=== PATIENT | male | born 1960 | race Caucasian/White ===

== ENCOUNTER → 2017-04-10 | Outpatient (CLI) | payer OTHER | LOC: ULTRA 12:02 | DX: N50.89 Other specified disorders of the male genital organs (principal) ==

== ENCOUNTER → 2017-05-08 | Outpatient (CLI) | payer OTHER ==
[~2017-05-08] VITALS: Ht 180.3 cm; Wt 91.4 kg
[~2017-05-08] MED LIST: ASPIRIN81 M2 PO; CELEXA20 MG PO; CYMBALTA30 MG PO; GLUCOPHAGE XR500 MG PO; IBUPROFEN 200200 M1 PO; TRESIBA FL100 UNIT/1 INJECTION; VIAGRA25 MG PO; ZOCOR20 MG PO
--- NOTE | ~2017-05-08 | HPC ---
[facility] [address] [place] [address] PAIN MANAGEMENT CONSULTATION Name: DARRION FLORES KAREN Room #: REG ROXANNELa Xiong#: [id number] Admission: 05/08/17 Attend Phys: Nir Alejandro DO Discharge: Date of : 58 Report #: [id number] THIS REPORT FOR: //name// CC: Trev Alejandro DATE OF SERVICE: 05/08/2017 The patient is a very pleasant 56-year-old gentleman seen in consultation at the request of Dr. Lares for assistance with management of right testicular pain. The patient notes he has had right testicular pain for greater than 30 years. Ultimately, progressed to have epididymectomy 05/2016 with transient improvement. Developed subsequent hydrocele and has had it aspirated twice with some efficacy. He has used anti-inflammatory medications with really nominal efficacy. Ice had helped somewhat in the past. Notes pain is aching, chronic, sharp with episodic ice pick, lancinating pain. Describes constant, steady, throbbing, sharp, stabbing pain, rates it anywhere from 6-9 on VAS. Cannot think of anything particularly that seems to make it better or worse. REVIEW OF SYSTEMS: Complete review of systems attached to chart and gone over with the patient. He is . Does not smoke, drink alcohol to excess. History of diabetes, currently treated with metformin, NovoLog and Tresiba. Recent hemoglobin A1c is 7.0. Has been on simvastatin due to risk factors including [id number] diabetes and father had coronary artery disease. Does have some erectile dysfunction, uses Viagra occasionally. He has been on citalopram for about 8 years for some low lying anxiety and depression. PAST SURGICAL HISTORY: Includes meniscus repair in 1976. Epididymectomy on 05/22/2016. Vasectomy in 1991 and aspiration of hydrocele was October and December. The patient works as a healthcare administrative manager. He continues to work despite pain. Pain impact score averages about 35/70. PHYSICAL EXAMINATION: VITAL SIGNS: Reveals a 5 feet 11 inches, 200 pound gentleman, BMI is 28.1 kilograms per meter squared. Blood pressure 131/89, pulse 67, respirations 16. NEUROLOGIC: Cranial nerves 2-12 are grossly intact. HEENT: Pupils equal, reactive to light and accommodation. Extraocular muscles are intact. [facility] [address] [place] [address] PAIN MANAGEMENT CONSULTATION Name: DARRION FLORES KAREN Room #: REG FLIP Xiong#: [id number] Admission: 05/08/17 Attend Phys: Nir Alejandro DO Discharge: Date of : 58 Report #: [id number] NECK: Thyroid is unremarkable. Cervical range of motion is full. Upper extremity strength is preserved. HEART: Regular rhythmical without murmur. LUNGS: Clear to auscultation. MUSCULOSKELETAL: Gait is tandem NOTE: ABDOMEN: Unremarkable. No suprapubic tenderness noted. GENITOURINARY: Right testicle is a little bit larger. I can palpate hydrocele on this side. Left testicle is unremarkable. Negative hernia exam. No tenderness noted over the anterior superior iliac spine, there is no groin adenopathy appreciable. ASSESSMENT: Right testicular pain, neuropathic pain component in a gentleman with comorbidity of diabetes. RECOMMENDATIONS: Discussed with the patient today about therapeutic option. First, we talked about rotating from a strict serotonin reuptake inhibitor to a combination SSRI and norepinephrine reuptake inhibitor to help with chronic pain concerns. We will rotate from 20 mg of Celexa to 30 mg of Cymbalta today. I gave the patient samples to start Lyrica 50 mg at bedtime. We will follow up in about 3-4 weeks to evaluate efficacy of these interventions. We may increase the Cymbalta to 60 mg if he he sees some efficacy. If not, we will consider moving forward with ilioinguinal genitofemoral nerve block on the right side. Thank you for allowing me to participate in the patient's care. I will keep you abreast of his progress. <ELECTRONICALLY SIGNED> By: Nir Alejandro DO 05/14/17 0847 1257 12 Nir Alejandro DO /nt
[2017-05-08 10:43] VITALS: BP 131/89
== END | disposition home or self-care (01) ==
LOC: PAIN 08:55
DX: N50.811 Right testicular pain (principal); E11.9 Type 2 diabetes mellitus without complications; F32.89 Other specified depressive episodes; Z98.890 Other specified postprocedural states; Z87.891 Personal history of nicotine dependence; Z79.82 Long term (current) use of aspirin; Z79.4 Long term (current) use of insulin; Z79.899 Other long term (current) drug therapy

== ENCOUNTER → 2017-06-05 | Outpatient (CLI) | payer OTHER ==
[~2017-06-05] VITALS: Ht 182.9 cm; Wt 92.2 kg
[~2017-06-05] MED LIST changes: +CYMBALTA60 MG PO; +LYRICA150 MG PO
--- NOTE | ~2017-06-05 | HPC ---
[facility] [address] [address] PAIN MANAGEMENT CONSULTATION Name: DARRION FLORES KAREN Room #: REG ROXANNELa Xiong#: [id number] Admission: 06/05/17 Attend Phys: Nir Alejandro DO Discharge: Date of : 58 Report #: [id number] THIS REPORT FOR: //name// CC: Preston Alejandro HISTORY OF PRESENT ILLNESS: The patient is a very pleasant 56-year-old gentleman seen in consultation on 05/08/2017, diagnosed with symptomatic right testicular pain, neuropathic pain requiring complex medication management. At that visit, we elected to start the patient on Lyrica low dose 50 mg, samples were given. We suggested rotation from Celexa 20 mg to Cymbalta 30 mg. We also briefly discussed ilioinguinal and genitofemoral nerve block. He returns to pain clinic today, he noted good relief initially with medications but gradually that recurred. He notes he has had that chronic right testicular pain for greater than 30 years. He states that the medications worked well for about 3 weeks, but it started to lose efficacy. Rates the pain 4 on a VAS, notes it is worse at the end of the day. PHYSICAL EXAMINATION: Shows 56-year-old gentleman, BMI is 27.6 kilograms per meter squared. Blood pressure is modestly elevated 152/90, pulse 82, respirations 16. Gait is tandem. Genital exam was referred. ASSESSMENT: 1. Right testicular pain. 2. Neuropathic pain requiring complex medication management. RECOMMENDATIONS: I had a long discussion with the patient today about therapeutic option, given the fact that he had good relief from low dose Cymbalta and Lyrica, we would like to simply push those doses up a little bit, I have taken the liberty of writing for prescription for Cymbalta 60 mg, samples of Lyrica 75 mg were given. We will slowly increase this dose from 50 mg at night to 75 at night for 7 night, 75 plus 50 (125 mg) at night for 7 nights. He has samples for all of this. I did generate a prescription for 150 mg of Lyrica to take at bedtime subsequent to the 1 week of 125 mg total dose. I will see him back in 4 weeks. If pain is becoming problematic, we will consider the ilioinguinal/genitofemoral nerve blocks at that time. If, however, he is doing reasonably well, I did write in both prescriptions (Cymbalta 60 mg and Lyrica 150 mg) for 30 tablets with 5 refills. We will see him simply on an as needed basis. <ELECTRONICALLY SIGNED> By: Nir Alejandro DO 06/08/17 1014 1532 1216 Nir Alejandro DO /nt
[2017-06-05 08:23] VITALS: BP 152/90
== END | disposition home or self-care (01) ==
LOC: PAIN 07:03
DX: G62.9 Polyneuropathy, unspecified (principal); Z79.899 Other long term (current) drug therapy

== ENCOUNTER → 2017-10-29 | Outpatient (CLI) | payer OTHER ==
[~2017-10-29] VITALS: Ht 182.9 cm; Wt 95.4 kg
[~2017-10-29] MED LIST changes: +LYRICA 75 MG CA75 MG PO; +NOVOLOG100 UNIT/1 SUBQ; +TRESIBA FL100 UNIT/1 SUBQ; +TRILEPTAL150 MG PO; +TRILEPTAL300 MG PO; +[UNRECOGNIZED DRUG - CODE] IM
--- NOTE | ~2017-10-29 | HPC ---
[facility] [address] [place] [address] PAIN MANAGEMENT CONSULTATION Name: SANDRADARRIONGERRY JONES Room #: REG FLIP Flores.#: [id number] Admission: 10/29/17 Attend Phys: Nir Alejandro DO Discharge: Date of : 58 Report #: [id number] THIS REPORT FOR: //name// CC: Preston Alejandro The patient is a 57-year-old gentleman, prior seen in the pain clinic 07/09/2017, diagnosed with symptomatic right testicular pain, neuropathic pain component, requiring complex medication management. The patient trialed Lyrica, titrated up to 150 mg at bedtime and Cymbalta, which caused erectile dysfunction, rotated back to Celexa. He returns to pain clinic today noting pain continues to be problematic, rates a 7 on VAS. PHYSICAL EXAMINATION: Shows a 57-year-old gentleman, BMI is 28.5 kg/m2. Vital signs are stable as noted on the EMR. He has not fallen in the last 6 weeks. Subjective pain score is 43/70, low risk for opiate diversion. He is using Lyrica 150 mg at bedtime with some efficacy. Notes pain continues to be problematic, it has been there for 30 years, feels that he is getting a little bit of swelling in the right testicle. Suggest he follow up with his urologist, he has had a cystocele drained twice, usually with improvement of pain for about 3-4 months. Otherwise, the neuropathic pain continues to be problematic, states the fairly small area perhaps half inch in diameter on the right testicle, but it does interfere with function. Physical exam as noted above. ASSESSMENT: Neuropathic pain requiring complex medication management, right testicular pain. RECOMMENDATION: We have elected to trial adding a sodium channel membrane stabilizing agent, while continuing the Lyrica. If there is some good synergy, we will continue that medication. If he does get excellent relief, we may consider weaning the Lyrica and see if the sodium channel membrane stabilizing agent alone affords good relief. I have taken liberty of writing for Trileptal 150 mg starting one at bedtime, titrating to target dose of 1 in the morning and 2 at night, follow up in 30 days to reevaluate. Discharged in good and stable condition after approximately 20-minute visit spent counseling the patient. I talked about moving forward with a ganglion impar block to help with ongoing neuropathic pain and what appears to be an ill-defined sympathetically mediated pain pattern. If this does not afford good relief, we also talked at length today about consideration for a spinal cord stimulator. I talked about [address] [address] PAIN MANAGEMENT CONSULTATION Name: DARRION FLORES Room #: REG FLIP Xiong#: [id number] Admission: 10/29/17 Attend Phys: Nir Alejandro DO Discharge: Date of : 58 Report #: [id number] mechanisms of action, risks and benefits. The patient was given a [employer] spinal cord stimulator disk. He was seen for approximately 30 minutes in total, greater than 50% of time was spent counseling the patient, discussing therapeutic options, risks and benefits. Seen from 9:53 to 10:20. <ELECTRONICALLY SIGNED> By: Nir Alejandro DO 11/02/17 0747 1239 1858 Nir Alejandro DO /nt
[2017-10-29 09:41] VITALS: BP 114/87
== END ==
LOC: PAIN 07:03
DX: N50.811 Right testicular pain (principal); M79.2 Neuralgia and neuritis, unspecified; Z79.899 Other long term (current) drug therapy

== ENCOUNTER → 2017-11-26 | Outpatient (CLI) | payer OTHER ==
[~2017-11-26] VITALS: Ht 182.9 cm; Wt 94.7 kg
[~2017-11-26] MED LIST changes: -NOVOLOG100 UNIT/1 SUBQ; -TRILEPTAL300 MG PO; -[UNRECOGNIZED DRUG - CODE] IM
--- NOTE | ~2017-11-26 | HPC ---
[facility] [address] [place] [place] [address] PAIN MANAGEMENT CONSULTATION Name: DARRION FLORES Room #: REG FLIP Xiong#: [id number] Admission: 11/26/17 Attend Phys: Nir Alejandro DO Discharge: Date of : 58 Report #: [id number] THIS REPORT FOR: //name// CC: Zak Alejandro DATE OF SERVICE: 11/26/2017 The patient is a 57-year-old gentleman being treated for chronic right testicular pain, neuropathic component, requiring complex medication management. Last seen in pain clinic 10/29/2017. Continued on Lyrica 150 mg in the morning and 75 at night, Cymbalta have been trialed but caused erectile dysfunction, is back on Celexa. I started Trileptal at last visit 150 mg, titrated up to 1 in the morning, 2 at night. We discussed proceeding with a ganglion impar block or spinal cord stimulator if that failed. The patient returns to pain clinic today noting that symptoms of pain in the right testicle and groin seem to be improved. Reviewed history, the patient's symptoms started 30 years ago. He has had vasectomy in 1991, starting his symptoms. He had an epydyectomy in 05/27/2016 and developed a hydrocele, has had this drained twice. He actually has a third hydrocele drainage scheduled next week. Initially it was drained 12 months ago, second draining was 6 months ago. He usually has improved subjective pain following this. Today, he notes his pain is generally well controlled, 2-3 on the VAS. PHYSICAL EXAMINATION: Otherwise shows a pleasant 57-year-old gentleman, BMI is 28.3 kilograms per meter squared, blood pressure 124/78, pulse 70, respirations 16. Alert and oriented to person, place and time, judged to be a reasonable historian, has not fallen in the last 3 months. Medication list was reconciled. Functional assessment tool score is 43/70. Low opiate risk using the opiate risk assessment tool. He rises from chair easily. Gait is tandem. Alert and oriented to person, place and time, judged to be a reasonable historian. Genital examination was deferred. ASSESSMENT: Neuropathic pain, right testicular chronic pain syndrome requiring complex medication management. RECOMMENDATIONS: We will continue Trileptal 150 mg 1 in the morning, 2 at night. We did review his lab studies from Dr. Bennett's office, a CBC obtained 11/05/2017 shows all normal values. No marrow suppression noted with the Trileptal. We will continue Lyrica, currently takes 150 mg in the morning and [address] [address] PAIN MANAGEMENT CONSULTATION Name: DARRION FLORES Room #: REG [facility] Tyrese#: [id number] Admission: 11/26/17 Attend Phys: Nir Alejandro DO Discharge: Date of : 58 Report #: [id number] 75 at night. I suggested we change his medication to 75 mg Lyrica 2 in the morning, 1 at night, with the ability to drop down to 1 tablet b.i.d. after the hydrocelectomy if this improves general pain. As pain starts to recur he can go back to 150 in the morning and 75 at night of the Lyrica tablets. ASSESSMENT: Symptomatic neuropathic pain, right testicular pain requiring complex medication management, stable on baseline medication. RECOMMENDATION: Changes as noted above. I will be happy to see the patient as needed for renewal of Lyrica and Trileptal. However, his primary practice physician can certainly write for these if so desired. We will be happy to see the patient back if anything changes and we require further interventional therapy, i.e., a ganglion impar block, consideration for spinal cord stimulator implant and/or further medication adjustments. <ELECTRONICALLY SIGNED> By: Nir Alejandro DO 11/30/17 0714 1225 1241 Nir Alejandro DO /nt
[2017-11-26 10:00] VITALS: BP 124/78
== END ==
LOC: PAIN 06:58
DX: N50.811 Right testicular pain (principal); G89.29 Other chronic pain; M79.2 Neuralgia and neuritis, unspecified; Z79.899 Other long term (current) drug therapy

== ENCOUNTER → 2018-06-25 | Outpatient (CLI) | payer OTHER ==
[~2018-06-25] VITALS: Ht 182.9 cm; Wt 89.4 kg
[~2018-06-25] MED LIST changes: +NOVOLOG100 UNIT/1 SUBQ; +TRILEPTAL300 MG PO; +[UNRECOGNIZED DRUG - CODE] IM
[2018-06-25 12:58] VITALS: BP 135/80
== END ==
LOC: PAIN 06:51
DX: N50.811 Right testicular pain (principal); Z72.89 Other problems related to lifestyle; Z86.59 Personal history of other mental and behavioral disorders; Z79.899 Other long term (current) drug therapy

== ENCOUNTER → 2018-10-13 | Outpatient (CLI) | payer OTHER ==
[~2018-10-13] VITALS: Ht 182.9 cm; Wt 91.2 kg
[~2018-10-13] MED LIST changes: +VITAMIN D1000 UNI1 PO
[2018-10-13 08:27] VITALS: BP 125/78
--- NOTE | 2018-10-13 08:45 | NUR ---
Pain Clinic Assessment: 1. History of Osteoarthritis: Not Applicable History of Rheumatoid Arthritis: Not Applicable 2. Height: 6 ft. 0 in. 182.9 cm. Weight: 201.0 lb. oz. 91.173 kg. Patient's BMI: 27.3 3. Vital Signs: BP: 125/78 Pulse: 76 Resp: 16 Temp: 02 Sat: 97 ECG Mon: 4. Pain Intensity: 2 AVG 1 TODAY 5. Fall Risk: Dizziness: N Needs help standing or walking: N Fallen in the last 3 months: N Fall risk comments: 6. Patient on Blood Thinner: None 7. History of Hypertension: N 8. Opioid Therapy greater than 6 weeks: N Opiate Contract Signed: 9. Risk Assessment Tool Provided: LOW RISK 09/09 10. Functional Assessment Tool: 11. Recreational Drug Use: Never Drug Type: Tobacco Use: Never Smoker Tobacco Type: Amount or Packs/day: How Many Years: Alcohol Use: Yes Frequency: Quant:
--- NOTE | 2018-10-15 16:49 | HPC ---
[facility] [place] [place] [address] PAIN MANAGEMENT CONSULTATION Name: FLORESDARRIONGERRY JONES Room #: REG FLIP Xiong#: [id number] Admission: 10/13/18 Attend Phys: Samuel Plunkett MD Discharge: Date of : 58 Report #: [id number] THIS REPORT FOR: //name// CC: Samuel Bennett DATE OF SERVICE: 10/13/2018 Here for medications. Things are going relatively well. FOLLOWUP HISTORY: The patient is a 58-year-old gentleman who has been followed in the Pain Clinic. He has a history of right testicular pain, which has been problematic for greater than 30 years. Has a history of epididymectomy in 2005. Has had some improvement as a result of that. Continues to have development of hydrocele. These have been aspirated in the past, but continues to have recurrences. Continues to be treated with a complex medical regimen. He feels it has been pretty helpful. This helps with the neuropathy component. He finds Lyrica 150 mg in the morning and 75 at night beneficial. He has had some erectile dysfunction. Feels that the Celexa has helped with this juncture. He has had discussions in the past with the possibility of a ganglion impar block. Possibility of a spinal cord stimulator had been discussed between the patient and Dr. Nir Alejandro. Since he is having reasonable pain reduction with his current medication, we will continue on this course. He has returned today with a desire to renew his medications. He would like to have 3 months prescriptions. ALLERGIES: No known drug allergies. CURRENT MEDICATIONS: 1. Papaverine/phentolamine/alprostadil water intermuscular as directed. 2. Trileptal 300 mg at bedtime, 150 mg in a.m., insulin NovoLog sliding scale 6 units with meal, Lyrica 75 mg at bedtime, 150 mg 9 a.m., ibuprofen 200 mg q. 6 hours, insulin 20 mg at bedtime, aspirin 81 mg, metformin 500 mg b.i.d., Celexa 20 mg at bedtime, Zocor 20 mg. PAIN CLINIC ASSESSMENT/PQRS: 1. History of osteoarthritis. The patient is not being treated for osteoarthritis and has not been treated for rheumatoid arthritis. 2. Height 6.0 feet, weight 201 pounds, BMI is 27.3. 3. Vital signs: Blood pressure 125/78. Pulse 76, respiratory rate 16, room air saturation 97%. 4. Pain intensity 2 on average today as a 1. 5. Rib fall risk. The patient has not fallen in the last 3 months. 6. Blood thinner. The patient is not on a blood thinning medication. 7. Hypertension. The patient is not being treated for hypertension. 8. Opioids greater than 6 weeks. [facility] [address] [place] [address] PAIN MANAGEMENT CONSULTATION Name: DARRION FLORES KAREN Room #: REG CLLa Xiong#: [id number] Admission: 10/13/18 Attend Phys: Samuel Plunkett MD Discharge: Date of : 58 Report #: [id number] 9. Risk assessment tool, low for opioid use 09/09. 10. Functional assessment tool. 11. Recreational drug use: The patient denies. 12. Tobacco: The patient has never smoked. 13. Alcohol, occasional alcoholic use. PHYSICAL EXAMINATION: GENERAL: The patient is a well-developed, well-nourished white male. Appears his stated age. He is alert and oriented x 3. His affect is appropriate. Speech is fluent. HEENT: Normocephalic, atraumatic. Extraocular eye muscles intact. Sclerae nonicteric. Mucous membranes are moist. NECK: Without JVD or adenopathy. HEART: Regular rate. S1, S2. LUNGS: Clear to auscultation without rhonchi or rales. ABDOMEN: Nontender. Bowel sounds present. EXTREMITIES: Upper extremity muscle strength is judged to be 5/5 for the major muscle groups with normal bulk and symmetry without neurologic change. Lower extremity muscle strength is judged to be 5/5 for the major muscle groups in the lower extremity. The patient has some pain and discomfort in his right testicular area and has some improvement in his pain with his current medical regimen. RECOMMENDATIONS: We discussed treatment options with the patient. He feels his medications are working well. He would like a 90-day prescription of each. We will renew his medications in a script for Trileptal 150 mg 1 p.o. q.a.m., 2 at bedtime, Lyrica 75 mg 2 in the a.m., 2 at bedtime. The patient will call us if he has any concerns. We would like to thank you for letting us participate in his care. We hope he continues to improve. <ELECTRONICALLY SIGNED> By: Samuel Plunkett MD 10/15/18 1649 1730 0145 Samuel Plunkett MD /nt
== END ==
LOC: PAIN 07:02
DX: N43.3 Hydrocele, unspecified (principal); Z79.899 Other long term (current) drug therapy

== ENCOUNTER → 2019-01-12 | Outpatient (CLI) | payer OTHER ==
[~2019-01-12] VITALS: Ht 180.3 cm; Wt 93.0 kg
[~2019-01-12] MED LIST changes: +AMITRIPTYLINE H10 M3 PO
--- NOTE | ~2019-01-12 | HPC ---
[facility] [address] [address] PAIN MANAGEMENT CONSULTATION Name: DARRION FLORES KAREN Room #: REG [place].#: [id number] Admission: 01/12/19 ������������������ Attend Phys: Samuel Plunkett MD Discharge: ������������������ Date of : 58 Report #: [id number] THIS REPORT FOR: //name// CC: Samuel Bennett DATE OF SERVICE: 01/12/2019 PROCEDURE: Right testicular pain. HISTORY: The patient is a 58-year-old gentleman who has been followed in the Pain Clinic. He has a history of right testicular pain. This has been ongoing for a number of years. About 30 years ago this is when the pain began. He has a history of epididymectomy in 2016. Pain improved after that. He does still continue to have pain and discomfort in the affected area. He has been treated over the years with a complex medical regimen, which has been helpful. He has found that his pain medications are now not as effective. Possibility of the spinal cord stimulator had been discussed with him in the past. At this juncture, he would like to have medications altered to increase his level of comfort. ALLERGIES: No known drug allergies. CURRENT MEDICATIONS: Papaverine/phentolamine/alprostadil water intramuscular as directed. Trileptal 300 mg at bedtime, 150 mg a.m. Insulin NovoLog sliding scale, Lyrica 75 mg at bedtime, 150 mg a.m. Ibuprofen 200 mg every 6 hours, insulin 20 units at bedtime, aspirin 81 mg, metformin 500 mg b.i.d., Celexa 20 mg at bedtime, and Zocor 20 mg. PAIN CLINIC ASSESSMENT/PQRS: 1. History of osteoarthritis. The patient is not being treated for osteoarthritis or rheumatoid arthritis. 2. Height 5 feet 11 inches, weight 205 pounds, BMI is 28.6. 3. Vital Signs: Blood pressure 119/77, pulse 78, respiratory rate 16, room air saturation 97%. 4. Pain intensity 12/15. 5. Fall risk. The patient has not fallen in the last 3 months. 6. Blood thinner. The patient is not on a blood thinning medication. 7. Hypertension. The patient is not being treated for hypertension. 8. Opioids greater than 6 weeks. The patient is not on a regular opioid regimen. 9. Risk assessment tool, moderate for opioid use. 10. Functional assessment tool, . 11. Recreational drug use. The patient denies use of recreational drugs. 12. Tobacco: The patient denies use of tobacco. 13. Alcohol. The patient drinks 1-2 beverages weekly. [address] [address] PAIN MANAGEMENT CONSULTATION Name: SANDRADARRION JONES Room #: REG [facility].#: [id number] Admission: 01/12/19 ������������������ Attend Phys: Samuel Plunkett MD Discharge: ������������������ Date of : 58 Report #: [id number] PHYSICAL EXAMINATION: GENERAL: The patient is a well-developed, well-nourished white male. Appears his stated age. He is alert and oriented x 3. His appetite is appropriate. Speech is slow. HEENT: Normocephalic, atraumatic. Extraocular eye muscles intact. Sclerae nonicteric. Mucous membranes are moist. NECK: Without adenopathy or JVD. HEART: Regular rate. S1, S2. LUNGS: Clear to auscultation without rhonchi or rales. ABDOMEN: Nontender. Bowel sounds present. EXTREMITIES: Upper extremity muscle strength metaphysician to be 5/5 for the major muscle groups without neurologic changes, lower extremity 5/5. The patient has pain and discomfort in the right testicular area that varies. Notes improvement with the current medication, but does note some waxing and waning of the pain over the last few months. RECOMMENDATIONS: We discussed treatment options with the patient. At this juncture, we will continue with his medications. We will have the patient try Elavil 10 mg 1 p.o. at bedtime. Hopefully, this will be helpful in improving the patient's ability to sleep as well as helping with the pain. We will start at the lowest dose of 10 mg. We will increase this as he is able to tolerate it. He will call us if he has any concerns. We would like to thank you for letting us participate in his care. We hope he continues to improve. ��������������������������������������������� ���������������������������������������� By: ��������������������������������������������� [id number] Samuel Plunkett MD /ashley
[2019-01-12 09:41] VITALS: BP 119/77
--- NOTE | 2019-01-12 09:51 | NUR ---
Pain Clinic Assessment: 1. History of Osteoarthritis: Not Applicable History of Rheumatoid Arthritis: Not Applicable 2. Height: 5 ft. 11 in. 180.3 cm. Weight: 205.0 lb. oz. 92.988 kg. Patient's BMI: 28.6 3. Vital Signs: BP: 119/77 Pulse: 78 Resp: 16 Temp: 02 Sat: 97 ECG Mon: 4. Pain Intensity: 4 5. Fall Risk: Dizziness: N Needs help standing or walking: N Fallen in the last 3 months: N Fall risk comments: 6. Patient on Blood Thinner: None 7. History of Hypertension: N 8. Opioid Therapy greater than 6 weeks: N Opiate Contract Signed: 9. Risk Assessment Tool Provided: LOW RISK / 10. Functional Assessment Tool: 11. Recreational Drug Use: Never Drug Type: Tobacco Use: Never Smoker Tobacco Type: Amount or Packs/day: How Many Years: Alcohol Use: Yes Frequency: Weekly Quant: 1-2
--- NOTE | 2019-01-12 09:58 | NUR ---
Pain Clinic Assessment: 1. History of Osteoarthritis: Not Applicable History of Rheumatoid Arthritis: Not Applicable 2. Height: 5 ft. 11 in. 180.3 cm. Weight: 205.0 lb. oz. 92.988 kg. Patient's BMI: 28.6 3. Vital Signs: BP: 119/77 Pulse: 78 Resp: 16 Temp: 02 Sat: 97 ECG Mon: 4. Pain Intensity: 4 5. Fall Risk: Dizziness: N Needs help standing or walking: N Fallen in the last 3 months: N Fall risk comments: 6. Patient on Blood Thinner: None 7. History of Hypertension: N 8. Opioid Therapy greater than 6 weeks: N Opiate Contract Signed: 9. Risk Assessment Tool Provided: moderate risk 10. Functional Assessment Tool: 11. Recreational Drug Use: Never Drug Type: Tobacco Use: Never Smoker Tobacco Type: Amount or Packs/day: How Many Years: Alcohol Use: Yes Frequency: Weekly Quant: 1-2
== END ==
LOC: PAIN 06:46
DX: N50.811 Right testicular pain (principal); Z79.899 Other long term (current) drug therapy

== ENCOUNTER → 2019-04-13 | Outpatient (CLI) | payer OTHER ==
[~2019-04-13] VITALS: Ht 180.3 cm; Wt 89.4 kg
[~2019-04-13] MED LIST changes: +AMITRIPTYLINE H25 M2 PO; +HUMALOG KW100 UNIT/1 SUBQ; +LANTUS SOL100 UNIT/1 SUBQ; +NOVOLOG100 UNIT/M SUBQ; -TRESIBA FL100 UNIT/1 SUBQ
--- NOTE | ~2019-04-13 | HPC ---
[facility] [address] [address] PAIN MANAGEMENT CONSULTATION Name: DARRION FLORES KAREN Room #: REG ROXANNELa Flores.#: [id number] Admission: 04/13/19 Attend Phys: Samuel Plunkett MD Discharge: Date of : 58 Report #: [id number] THIS REPORT FOR: //name// CC: Samuel Bennett DATE OF SERVICE: 04/13/2019 FOLLOWUP COMPLAINT: Here for medication renewal. HISTORY: The patient is a 58-year-old gentleman who has been followed in the pain clinic. As you may recall, he has a chronic history of right testicular pain. This has been ongoing for a number of years. He finds that at this point, it has helped with his current medications. Pain has started about 30 years ago. He had a history of an epididymectomy in 2016 as well. He noticed some improvement after that procedure. He still has pain and discomfort, which is helped by the complex medical management he has been undertaking. He travels quite a bit. He notes that if he is sitting for a prolonged period of time in a confined area such as flying which he does at times can be more problematic. Overall, he feels his medications are going reasonably well. He has returned to the pain clinic with the desire to have them renewed. ALLERGIES: No known drug allergies. CURRENT MEDICATIONS: Papaverine/phentolamine/Alprostadil intramuscular as directed, Trileptal 300 mg at bedtime, 150 mg a.m., insulin NovoLog sliding scale, Lyrica 75 mg at bedtime, 150 mg a.m., ibuprofen 200 mg q.6 hours, insulin 20 units at bedtime, aspirin 81 mg, metformin 500 mg b.i.d., Celexa 20 mg at bedtime, Zocor 20 mg. PAIN CLINIC ASSESSMENT/PQRS: 1. History of osteoarthritis. The patient is not being treated for osteoarthritis or rheumatoid arthritis. 2. Height 5 feet 11 inches, weight 197 pounds, BMI is 27.5. 3. VITAL SIGNS: Blood pressure 125/81, pulse 70, respiratory rate 16, room air saturation 97%. 4. Pain intensity 3-4. More pain and increasing discomfort with prolonged sitting such on an airplane may rise to the level of 5-6. 5. Fall history: The patient has not fallen in the last 3 months. 6. Blood thinner. The patient is not on a blood thinning medication. 7. Hypertension. The patient is not being treated for hypertension. 8. Opioids. The patient is not on opioid regimen. 9. Risk assessment tool, moderate for opioid use. 10. Functional assessment tool . 11. Recreational drug use. The patient denies. 12. Tobacco: [place] [address] PAIN MANAGEMENT CONSULTATION Name: DARRION FLORES KAREN Room #: REG CLLa Xiong#: [id number] Admission: 04/13/19 Attend Phys: Samuel Plunkett MD Discharge: Date of : 58 Report #: [id number] 13. Alcohol: The patient occasionally drinks alcoholic beverages. PHYSICAL EXAMINATION: GENERAL: The patient is a well-developed, well-nourished white male. Appears his stated age. He is alert and oriented x 3. His affect is appropriate. Speech is fluent. HEENT: Normocephalic, atraumatic. Extraocular eye muscles intact. Sclerae nonicteric. Mucous membranes are moist. NECK: Without adenopathy or JVD. HEART: Regular rate. ABDOMEN: Nontender. The patient has pain and discomfort in the groin area. EXTREMITIES: Upper extremity muscle strength judged to be 5/5 for the major muscle groups in the upper extremity. Lower extremity muscle strength is judged to be 5/5. RECOMMENDATIONS: We discussed treatment options with the patient. At this juncture, we will continue with his current medications. He will take Elavil 25 mg at bedtime. He finds this medication is helpful. Also, we will use Lyrica 75 mg 2 tablets p.o. b.i.d. He will continue with the Trileptal 150 mg 1 p.o. daily. He will call us if he has any concerns. We will continue with his medications. He will call us if he has any concerns. He states he is going on vacation in a few weeks as well as going on one vacation well as four business trips in the near future. We would like to thank you for letting us participate in his care. We hope he continues to improve. By: [id number] Samuel Plunkett MD /ashley
[2019-04-13 08:48] VITALS: BP 125/81
--- NOTE | 2019-04-13 09:08 | NUR ---
Pain Clinic Assessment: 1. History of Osteoarthritis: Not Applicable History of Rheumatoid Arthritis: Not Applicable 2. Height: 5 ft. 11 in. 180.3 cm. Weight: 197.0 lb. oz. 89.359 kg. Patient's BMI: 27.5 3. Vital Signs: BP: 125/81 Pulse: 70 Resp: 16 Temp: 02 Sat: 97 ECG Mon: 4. Pain Intensity: 3 TODAY 5. Fall Risk: Dizziness: N Needs help standing or walking: N Fallen in the last 3 months: N Fall risk comments: 6. Patient on Blood Thinner: None 7. History of Hypertension: N 8. Opioid Therapy greater than 6 weeks: N Opiate Contract Signed: 9. Risk Assessment Tool Provided: moderate risk 10. Functional Assessment Tool: 11. Recreational Drug Use: Never Drug Type: Tobacco Use: Never Smoker Tobacco Type: Amount or Packs/day: How Many Years: Alcohol Use: Yes Frequency: Quant:
== END ==
LOC: PAIN 06:48
DX: Z76.0 Encounter for issue of repeat prescription (principal); Z79.899 Other long term (current) drug therapy; Z79.82 Long term (current) use of aspirin; Z79.4 Long term (current) use of insulin

== ENCOUNTER → 2019-08-26 | Outpatient (CLI) | payer OTHER ==
[~2019-08-26] MED LIST changes: +COLACE100 MG PO; +MIRALAX17 GM PO
--- NOTE | 2019-08-28 21:35 | SLE ---
[facility] [place] [address] POLYSOMNOGRAPHY STUDY Name: DARRION FLORES [id number] Admission: 08/26/19 Attend Phys: Allan Childs MD Discharge: Date of : 58 Report #: [id number] THIS REPORT FOR: //name// CC: Allan Bennett MD DATE OF SERVICE: 08/26/2019 REFERRING PHYSICIAN: Dr. Zak Bennett. The patient is 58 years old who weighs 197 pounds with a BMI of 27.5. The patient's Austin score was 13. Review of medications also revealed use of Lyrica and amitriptyline along with Celexa and Trileptal. The patient underwent a diagnostic sleep study performed at [facility]. During the night study, the patient spent 518 minutes in bed and slept for 367 minutes with a sleep efficiency of 71%. Sleep latency was 27 minutes with a REM latency of 252 minutes. Sleep architecture showed increased stage 1 and stage 2 sleep, absent slow wave and normal REM sleep. During the night of the study, the patient has 5 obstructive apneas, 3 mixed apneas, 12 central apneas and 5 hypopneas. The patient's apnea-hypopnea index was 4.1 per hour with a supine index of 14.4 per hour. The patient did not have any significant respiratory events during REM sleep. EKG monitoring revealed an average heart rate of 63 beats per minute. No sustained arrhythmias observed. PLMs were seen at an index of 25 per hour and 5 per hour caused EEG arousals. Nocturnal oximetry study revealed an average oxygen saturation of 94% with the lowest of 85%, 2 minutes were spent in oxygen saturation of less than 89%. Due to low AHI, the patient did not meet the split night criteria for CPAP initiation. IMPRESSION: 1. No clinically significant sleep disorder breathing. The patient's AHI for the entire night was 4.1 per hour. 2. No clinically significant nocturnal hypoxia. 3. Moderate periodic limb movements. RECOMMENDATIONS: 1. The patient did not meet the split night criteria for CPAP initiation due to low AHI. [facility] [address] [place] [address] POLYSOMNOGRAPHY STUDY Name: DARRION FLORES Room #: REG [facility].#: [id number] Admission: 08/26/19 Attend Phys: Allan Childs MD Discharge: Date of : 58 Report #: [id number] 2. The patient has subjective hypersomnia. It could be the effect of medications. Review of medications revealed use of Lyrica, Trileptal, Celexa, and amitriptyline. Clinical correlation is advised. 3. Cautioned regarding driving until the patient's hypersomnia is resolved. 4. PLMs does not need to be treated unless the patient has symptoms of restless legs during the day. <ELECTRONICALLY SIGNED> By: Allan Childs MD 08/28/19 2135 [id number] Allan Childs MD /nt
== END ==
LOC: SLEEPLAB 14:00
DX: G47.19 Other hypersomnia (principal); Z79.899 Other long term (current) drug therapy

== ENCOUNTER → 2019-10-19 | Outpatient (CLI) | payer OTHER ==
[~2019-10-19] VITALS: Ht 180.3 cm; Wt 91.6 kg
[2019-10-19 08:52] VITALS: BP 143/94
--- NOTE | 2019-10-19 09:01 | NUR ---
Pain Clinic Assessment: 1. History of Osteoarthritis: Not Applicable History of Rheumatoid Arthritis: Not Applicable 2. Height: 5 ft. 11 in. 180.3 cm. Weight: 202.0 lb. oz. 91.627 kg. Patient's BMI: 28.2 3. Vital Signs: BP: 143/94 Pulse: 79 Resp: 16 Temp: 02 Sat: 98 ECG Mon: 4. Pain Intensity: 2 5. Fall Risk: Dizziness: N Needs help standing or walking: N Fallen in the last 3 months: N Fall risk comments: 6. Patient on Blood Thinner: None 7. History of Hypertension: N 8. Opioid Therapy greater than 6 weeks: N Opiate Contract Signed: 9. Risk Assessment Tool Provided: moderate risk-4 10. Functional Assessment Tool: 11. Recreational Drug Use: Never Drug Type: Tobacco Use: Never Smoker Tobacco Type: Amount or Packs/day: How Many Years: Alcohol Use: Yes Frequency: Weekly Quant: BEER
--- NOTE | 2019-10-21 08:29 | HPC ---
[facility] [address] [place] [address] PAIN MANAGEMENT CONSULTATION Name: ADRRION FLORES Room #: REG FLIP Flores.#: [id number] Admission: 10/19/19 Attend Phys: Samuel Plunkett MD Discharge: Date of : 58 Report #: [id number] THIS REPORT FOR: cc: Zak Bennett MD, Rene P. MD Brown,Samuel Chakraborty MD ~ THIS REPORT FOR: //name// CC: Samuel Bennett DATE OF SERVICE: 10/19/2019 CHIEF COMPLAINT: "I think the pain is about stabilized on my current regimen." HISTORY: The patient is a 59-year-old gentleman who has been followed in the Pain Clinic because of chronic pain. As you know, he has a history of right testicular pain. This has been problematic for a number of years. He finds that his current medication regimen seems to be going very well. He feels that he could continue with his medications and he goes to the Pain Clinic on a yearly/6 months regimen. Continues to be dizzy and travels. As you may recall, he has a history of epididymectomy in 2016. Does still have some discomfort with prolonged sitting. Flying in airplanes can be somewhat problematic because of being confined. The patient feels that rather than continuing on a 3-month basis things have stabilized enough that seen in the Pain Clinic once a year or twice a year, would be sufficient. ALLERGIES: No known drug allergies. CURRENT MEDICATIONS: Papaverine/ phentolamine/alprostadil intramuscular, Trileptal Ellipta 300 mg at bedtime, 150 mg a.m., insulin NovoLog sliding scale, Lyrica 75 mg at bedtime, 150 mg a.m., ibuprofen 200 mg q. 6 hours, insulin 20 units at bedtime, aspirin 81 mg, metformin 500 mg b.i.d., Celexa 20 mg at bedtime, and Zocor 20 mg. PAIN CLINIC ASSESSMENT/PQRS: 1. The patient is not being treated for osteoarthritis or rheumatoid arthritis. 2. Height 5 feet 11 inches, weight 202 pounds, and BMI is 28. 3. Vital signs: Blood pressure 143/94, pulse 79, respiratory rate 16, and room air saturation 98%. 4. Pain intensity, 10/17. 5. Fall history: The patient has not fallen in the last 3 months. 6. Blood thinner. The patient is not on a blood thinning medication. 7. Hypertension. The patient is not being treated for hypertension. 8. Opioids greater than 6 weeks. The patient received medication from one source, Pain Clinic. [address] [address] PAIN MANAGEMENT CONSULTATION Name: DARRION FLORES Room #: REG CLLa Xiong#: [id number] Admission: 10/19/19 Attend Phys: Samuel Plunkett MD Discharge: Date of : 58 Report #: [id number] 9. Risk assessment tool, low for opioid use. 10. Functional assessment tool, . 11. Recreational drug use: The patient denies. 12. Tobacco: The patient has never smoked. 13. Alcohol: The patient occasionally drinks alcoholic beverages a beer weekly. PHYSICAL EXAMINATION: GENERAL: The patient is a well-developed, well-nourished white male. Appears his stated age. He is alert and oriented x 3. His affect is appropriate. Speech is fluent. HEENT: Normocephalic, atraumatic. Extraocular eye muscles intact. Sclerae nonicteric. Mucous membranes are moist. NECK: Without adenopathy or JVD. HEART: Regular rate. ABDOMEN: Nontender. The patient has some pain and discomfort in the groin area. EXTREMITIES: Upper extremity muscle strength judged to be 5/5 for the major muscle groups in the upper extremity. Lower extremity muscle strength judged to be 5/5 for the major muscle groups in the lower extremity. IMPRESSION: 1. Symptomatic right testicular pain. 2. Neurologic and neuropathic pain requiring complex medical management to help control the pain. 3. Diabetes. RECOMMENDATIONS: We will continue with the patient's use of Elavil 25 mg at bedtime. He will also continue with Colace 100 mg. The patient has noticed that he has stool, which is elongated. States that it is usually soft and sometimes feels long and narrow in width. He has not noticed any signs other than the elongation and narrow width of his stool. We would recommend that he follow up with a GI doctor. He states that he is going to see his primary care in the near future. He does not show any signs of blood in his stool, not complaining of any abdominal discomfort. He will also continue with Lyrica 75 mg at bedtime. A script for Trileptal 150 mg daily has been prescribed. A script for 6 months of medications have been provided. The patient will call us if he has any concerns regarding his medication. We would like to thank you for letting us participate in his care. <ELECTRONICALLY SIGNED> By: Samuel Plunkett MD 10/21/19 0829 1342 21 Samuel Plunkett MD /nt
== END ==
LOC: PAIN 06:42
DX: N50.811 Right testicular pain (principal); E11.9 Type 2 diabetes mellitus without complications; Z79.899 Other long term (current) drug therapy

== ENCOUNTER → 2020-02-24 | Outpatient (CLI) | payer OTHER ==
[~2020-02-24] VITALS: Ht 180.3 cm; Wt 93.1 kg
[2020-02-24 09:09] VITALS: BP 128/85
--- NOTE | 2020-02-24 09:27 | NUR ---
Pain Clinic Assessment: 1. History of Osteoarthritis: Not Applicable History of Rheumatoid Arthritis: Not Applicable 2. Height: 5 ft. 11 in. 180.3 cm. Weight: 205.2 lb. oz. 93.078 kg. Patient's BMI: 28.6 3. Vital Signs: BP: 128/85 Pulse: 79 Resp: 16 Temp: 02 Sat: 96 ECG Mon: 4. Pain Intensity: 4 5. Fall Risk: Dizziness: N Needs help standing or walking: N Fallen in the last 3 months: N Fall risk comments: 6. Patient on Blood Thinner: None 7. History of Hypertension: N 8. Opioid Therapy greater than 6 weeks: N Opiate Contract Signed: 9. Risk Assessment Tool Provided: moderate risk-4 10. Functional Assessment Tool: 11. Recreational Drug Use: Never Drug Type: Tobacco Use: Never Smoker Tobacco Type: Amount or Packs/day: How Many Years: Alcohol Use: Yes Frequency: Weekly Quant: 1
--- NOTE | 2020-03-07 16:00 | HPC ---
[facility] [address] [address] PAIN MANAGEMENT CONSULTATION Name: DARRION FLORES Room #: REG FLIP [facility].#: [id number] Admission: 02/24/20 Attend Phys: Samuel Plunkett MD Discharge: Date of : 58 Report #: [id number] THIS REPORT FOR: cc: Zak Bennett MD, Rene P. MD Brown,Samuel Chakraborty MD ~ CC: Samuel Bennett DATE OF SERVICE: 02/24/2020 CHIEF COMPLAINT: Right testicular pain. HISTORY: The patient is a 59-year-old gentleman who has been followed in the pain clinic because of chronic pain. He has a history of right testicular pain. The problem started a number of years ago. He still has pain, which continues to be problematic. He feels that his medications continue to be helpful. He continues to travel. His history includes an epididymectomy in 2016. Prolonged sitting is problematic. Flying in aeroplane are problematic. He feels that his medications are helpful, but at certain times there are not as efficacious as he would like for them to be. He would like to have his medications renewed today. ALLERGIES: No known drug allergies. CURRENT MEDICATIONS: Papaverine/phentolamine/alprostadil intermuscular, Trileptal 300 mg at bedtime, 150 mg in the morning, insulin NovoLog sliding scale, Lyrica 75 mg at bedtime, 150 mg a.m., ibuprofen 200 mg q. 6 hours p.r.n., insulin 20 units at bedtime, aspirin 81 mg, metformin 500 mg b.i.d., Celexa 20 mg at bedtime, and Zocor 20 mg. PAIN CLINIC ASSESSMENT AND PQRS: 1. The patient is not being treated for osteoarthritis or rheumatoid arthritis. 2. Height 5 feet 11 inches, weight 205 pounds, BMI 28. 3. Vital signs: Blood pressure 128/85, pulse 79, respiratory rate 16, room air saturation 96%. 4. Pain intensity 4/10. It increases as the day progresses. It can be 7-8 at the end of the day. Standing, sitting can exacerbate the discomfort. 5. Fall history: The patient has not fallen in the last 3 months. 6. Blood thinner. The patient is not on a blood thinning medication. 7. Hypertension. The patient is not being treated for hypertension. 8. Opioids greater than 6 weeks. The patient is not on a opioid regimen. 9. Risk assessment tool, moderate for opioid use. 10. Functional assessment tool, . 11. Recreational drug use. The patient denies. 12. Tobacco: The patient has never smoked. 13. Alcohol: The patient drinks alcohol about once weekly. [address] [address] PAIN MANAGEMENT CONSULTATION Name: SANDRADARRION JONES Room #: REG CL Sandra.#: [id number] Admission: 02/24/20 Attend Phys: Samuel Plunkett MD Discharge: Date of : 58 Report #: [id number] PHYSICAL EXAMINATION: GENERAL: The patient is a well-developed, well-nourished white male. Appears his stated age. He is alert and oriented x 3. His affect is appropriate. Speech is fluent. HEENT: Normocephalic, atraumatic. Extraocular eye muscles intact. The patient is wearing a mask. NECK: Without adenopathy or JVD. HEART: Regular rate. ABDOMEN: Nontender. The patient has pain and discomfort in the groin area. EXTREMITIES: Upper extremity muscle strength judged to be 5/5 for the major muscle groups in the upper extremity. Lower extremity muscle strength judged to be 5/5 for the major muscle groups in the lower extremity. IMPRESSION: 1. Symptomatic right testicular pain. 2. Neurologic and neuropathic pain requiring complex medical management to help control the pain. 3. Diabetes. RECOMMENDATIONS: We discussed treatment options with the patient. The patient will continue with his use of Elavil and increase this to 2 tablets at night for a total of 50 mg at bedtime. He will also continue with Colace 100 mg. The patient will continue to monitor his GI status. He will also continue with Lyrica 75 mg 2 tablets a.m., 2 tablets evening and Trileptal 150 mg 1 tablet a.m., 2 tablets at bedtime. The patient will call us if he has any problems or concerns. We would like to thank you for letting us participate in his care. We hope he continues to improve. <ELECTRONICALLY SIGNED> By: Samuel Plunkett MD 03/07/20 1600 [id number] Samuel Plunkett MD /nt
== END ==
LOC: PAIN 06:47
PROVIDERS: ATTEND Anesthesiology Pain Medicine
DX: G89.29 Other chronic pain (principal); N50.811 Right testicular pain; M79.2 Neuralgia and neuritis, unspecified; E11.9 Type 2 diabetes mellitus without complications

== ENCOUNTER → 2020-10-05 | Outpatient (CLI) | payer OTHER ==
[~2020-10-05] VITALS: Ht 180.3 cm; Wt 94.6 kg
[~2020-10-05] MED LIST changes: +OXCARBAZEPINE150 MG PO; +OXTELLAR XR150 MG PO; +PREGABALIN75 MG PO
[2020-10-05 08:51] VITALS: BP 146/79
--- NOTE | 2020-10-05 08:54 | NUR ---
Pain Clinic Assessment: 1. History of Osteoarthritis: Not Applicable History of Rheumatoid Arthritis: Not Applicable 2. Height: 5 ft. 11 in. 180.3 cm. Weight: 208.6 lb. oz. 94.620 kg. Patient's BMI: 29.1 3. Vital Signs: BP: 146/79 Pulse: 79 Resp: 14 Temp: 02 Sat: 97 ECG Mon: 4. Pain Intensity: 1-2 5. Fall Risk: Dizziness: N Needs help standing or walking: N Fallen in the last 3 months: N Fall risk comments: 6. Patient on Blood Thinner: None 7. History of Hypertension: N 8. Opioid Therapy greater than 6 weeks: N Opiate Contract Signed: 9. Risk Assessment Tool Provided: moderate risk-4 10. Functional Assessment Tool: 11. Recreational Drug Use: Never Drug Type: Tobacco Use: Never Smoker Tobacco Type: Amount or Packs/day: How Many Years: Alcohol Use: Yes Frequency: Quant:
== END ==
LOC: PAIN 06:51
PROVIDERS: ATTEND Anesthesiology Pain Medicine
DX: N50.811 Right testicular pain (principal); M79.2 Neuralgia and neuritis, unspecified; E11.9 Type 2 diabetes mellitus without complications; Z72.89 Other problems related to lifestyle; Z79.899 Other long term (current) drug therapy; Z79.4 Long term (current) use of insulin

== ENCOUNTER → 2021-01-18 | Outpatient (CLI) | payer OTHER ==
[~2021-01-18] VITALS: Ht 180.3 cm; Wt 94.0 kg
[~2021-01-18] MED LIST changes: +AMITRIPTYLINE H50 M3 PO
[2021-01-18 08:14] VITALS: BP 146/81
--- NOTE | 2021-01-18 08:17 | NUR ---
Pain Clinic Assessment: 1. History of Osteoarthritis: Not Applicable History of Rheumatoid Arthritis: Not Applicable 2. Height: 5 ft. 11 in. 180.3 cm. Weight: 207.2 lb. oz. 93.985 kg. Patient's BMI: 28.9 3. Vital Signs: BP: 146/81 Pulse: 76 Resp: 16 Temp: 02 Sat: 99 ECG Mon: 4. Pain Intensity: 2 5. Fall Risk: Dizziness: N Needs help standing or walking: N Fallen in the last 3 months: N Fall risk comments: 6. Patient on Blood Thinner: None 7. History of Hypertension: N 8. Opioid Therapy greater than 6 weeks: N Opiate Contract Signed: 9. Risk Assessment Tool Provided: moderate risk-4 10. Functional Assessment Tool: 11. Recreational Drug Use: Never Drug Type: Tobacco Use: Never Smoker Tobacco Type: Amount or Packs/day: How Many Years: Alcohol Use: Yes Frequency: Weekly Quant: 1
== END ==
LOC: PAIN 07:00
PROVIDERS: ATTEND Anesthesiology Pain Medicine
DX: N50.811 Right testicular pain (principal); M79.2 Neuralgia and neuritis, unspecified; E11.9 Type 2 diabetes mellitus without complications; Z79.891 Long term (current) use of opiate analgesic; Z79.899 Other long term (current) drug therapy; F32.9 Major depressive disorder, single episode, unspecified

== ENCOUNTER → 2021-06-05 | Outpatient (CLI) | payer OTHER ==
[~2021-06-05] VITALS: Ht 180.3 cm; Wt 92.9 kg
[2021-06-05 08:09] VITALS: BP 141/91
--- NOTE | 2021-06-05 08:17 | NUR ---
[facility] Assessment: 1. History of Osteoarthritis: Not Applicable History of Rheumatoid Arthritis: Not Applicable 2. Height: 5 ft. 11 in. 180.3 cm. Weight: 204.8 lb. oz. 92.897 kg. Patient's BMI: 28.6 3. Vital Signs: BP: 141/91 Pulse: 79 Resp: 16 Temp: 02 Sat: 98 ECG Mon: 4. Pain Intensity: 1 5. Fall Risk: Dizziness: N Needs help standing or walking: N Fallen in the last 3 months: N Fall risk comments: 6. Patient on Blood Thinner: None 7. History of Hypertension: N 8. Opioid Therapy greater than 6 weeks: N Opiate Contract Signed: 9. Risk Assessment Tool Provided: moderate risk-4 10. Functional Assessment Tool: 11. Recreational Drug Use: Never Drug Type: Tobacco Use: Never Smoker Tobacco Type: Amount or Packs/day: How Many Years: Alcohol Use: Yes Frequency: Special Occasions Quant: 2
== END ==
LOC: PAIN 06:54
PROVIDERS: ATTEND Anesthesiology Pain Medicine
DX: N50.811 Right testicular pain (principal); E11.9 Type 2 diabetes mellitus without complications; M79.2 Neuralgia and neuritis, unspecified; Z79.4 Long term (current) use of insulin; Z79.82 Long term (current) use of aspirin; Z79.899 Other long term (current) drug therapy

== ENCOUNTER → 2021-06-10 | Outpatient (CLI) | payer OTHER ==
[2021-06-10 09:35] LABS: BASOPHILS 0.7 % (0.0-2.0); EOSINOPHILS 1.7 % (0.0-3.0); HEMATOCRIT 43.8 % (42.0-52.0); HEMOGLOBIN 14.8 gm/dL (14.0-18.0); LYMPHOCYTES 18.2 % (24.0-44.0); MCH 30.5 pg (26.0-34.0); MCHC 33.6 g/dL (28.0-37.0); MCV 90.8 fL (80.0-100.0); MONOCYTES 5.8 % (1.0-8.0); PLATELET COUNT 208 thou/uL (150-400); POLYS 73.6 % (36.0-66.0); RBC 4.83 mil/uL (4.50-6.00); RDW 14.2 % (10.5-14.5); WBC 5.5 thou/uL (4.0-11.0)
[2021-06-10 09:49] LABS: ANION GAP 5 mmol/L (7-16); BUN 13 mg/dL (7-18); CALCIUM 9.7 mg/dL (8.5-10.1); CHLORIDE 101 mmol/L (98-107); CHOLESTEROL 143 mg/dL (<200); CO2 34 mmol/L (21-32); CREATININE 0.9 mg/dL (0.7-1.3); GLUCOSE 176 mg/dL (74-106); HDL CHOLESTEROL 66 mg/dL (>40); LDL CHOLESTEROL 64 mg/dL (<100); POTASSIUM 3.8 mmol/L (3.5-5.1); SGOT 53 U/L (15-37); SGPT 37 U/L (30-65); SODIUM 140 mmol/L (136-145); TC:HDL 2.2 Ratio (Not establshd); TOTAL BILIRUBIN 0.5 mg/dL (0.2-1.0); TOTAL PROTEIN 7.2 g/dL (6.4-8.2); TRIGLYCERIDE 66 mg/dL (<150); VLDL 13 mg/dL (<40)
[2021-06-11 00:06] LABS: GLYCOHEMOGLOBIN (HGB A1C) 7.9 % (4.8-5.6)
== END ==
LOC: LAB 08:42
PROVIDERS: ATTEND Family Medicine
DX: Z12.5 Encounter for screening for malignant neoplasm of prostate (principal); E11.9 Type 2 diabetes mellitus without complications; E78.00 Pure hypercholesterolemia, unspecified; Z79.4 Long term (current) use of insulin